=== PATIENT | female | born 1975 | race Caucasian/White ===

== ENCOUNTER 2017-02-13 12:48 | Emergency (ER) | payer OTHER ==
[~2017-02-13] VITALS: Ht 157.5 cm; Wt 70.5 kg
[2017-02-13 12:58] VITALS: Ht 157.5 cm; Wt 70.5 kg
[2017-02-13] MEDS ORDERED: LIDOCAINE 1% (MDV) 20 ML INJ INJ STA (14:44)
[2017-02-13] MEDS ORDERED: IBUPROFEN 800 MG TAB PO STA (14:44)
[2017-02-13] MEDS ORDERED: DIPHTH/TET/ACEL PERTUSS (ADULT) 0.5 ML VIAL IM ONE (15:00)
--- NOTE | 2017-02-13 15:27 | ERD ---
ER Documentation Chief Complaint Date/Time DATE: 02/13/17 Chief Complaint Laceration to left index finger HPI The patient is a 41-year-old female who presents to the Emergency Department with complaint of a laceration to the left index finger. The patient reports that today while at work at a [employer], she accidentally cut the radial aspect of the distal left index finger with a pair of scissors she was using. She immediately washed the wound and placed a pressure dressing, but continues to have some bleeding after the pressure dressing was removed. She denies any numbness, paresthesias or weakness of the distal extremity. Denies restricted range of motion. She rates her current pain as 5/10, though has not yet taken any medication for pain relief. Tetanus status is unknown. ROS All systems reviewed and are negative except as per history of present illness. Allergies Allergies: Coded Allergies: No Known Drug Allergy (Verified Allergy, Unknown, 09/04/07) PMhx/Soc Medical and Surgical Hx: pt denies Medical Hx, pt denies Surgical Hx Hx Alcohol Use: No Hx Substance Use: No Hx Tobacco Use: No Smoking Status: Never smoker Physical Exam Vitals Vital Signs Date Time Temp Pulse Resp B/P Pulse Ox O2 Delivery O2 Flow Rate FiO2 02/13/17 12:58 98.4 71 18 132/62 98 Physical Exam Const: Well-developed, well-nourished, in no acute distress. Head: Atraumatic Eyes: Normal Conjunctiva ENT: Normal External Ears, Nose and Mouth. Neck: Supple. Resp: Clear to auscultation bilaterally Cardio: Regular rate and rhythm, no murmurs Skin: 2-cm curved flap laceration to the radial aspect of the distal left index finger. Minimal bleeding. No crepitus. Ext: No clubbing, cyanosis, or edema. Moving all extremities. Normal flexion and extension at the MCP, PIP and DIP joints. Distal neurovascular status intact. Compartments are soft. Radial and ulnar pulses 2+. Capillary refill < 2 seconds. Neur: Awake and alert. Motor and sensation grossly intact. Psych: Cooperative. Appropriate. Results 24 hrs Current Medications Medications (Trade) Dose Ordered Sig/Mare Route PRN Reason Start Time Stop Time Status Last Admin Dose Admin Diphtheria/ Tetanus/Acell Pertussis (Adacel) 0.5 ml ONCE ONCE IM 02/13/17 15:00 02/13/17 15:02 DC 02/13/17 14:54 Lidocaine (Xylocaine 1% (Mdv) 20 ml) 20 ml ONCE STAT INJ 02/13/17 14:44 02/13/17 14:47 DC 02/13/17 14:51 Ibuprofen (Motrin) 800 mg ONCE STAT PO 02/13/17 14:44 02/13/17 14:47 DC 02/13/17 14:52 Bacitracin (Bacitracin Oint (Ud)) 1 applic ONCE ONCE TOP 02/13/17 15:30 02/13/17 15:31 DC 02/13/17 15:37 Procedures/[facility]M EMERGENCY DEPARTMENT COURSE: The patient was stable throughout the ER course. She was given ibuprofen for pain control. The wound was thoroughly cleansed and a laceration repair was performed. On reassessment the patient was sitting comfortably. Tdap ordered for administration. PROCEDURE NOTE: Laceration repair. INDICATIONS: 2 cm curved flap laceration to the left index finger. CONSENT: Consent was obtained from the patient prior to the procedure. Indications, risks and benefits were explained at length. PROCEDURAL SUMMARY: A time out protocol was performed prior to initiating the procedure. The patient was positioned appropriately. The site was anesthetized with 2 mL of 1% lidocaine without epinephrine. Normal saline and Betadine were used for wound irrigation. The wound was then explored, and no foreign body visualized, no tendon injury. The area was prepared and draped in the usual sterile manner with the wound exposed. Six 5-0 simple interrupted Ethilon sutures are placed with good wound closure and good wound approximation. Bleeding was minimal. The patient tolerated the procedure well without complications. The wound was dressed with bacitracin and sterile gauze. Standard post procedure care was explained and return precautions were given. On re-evaluation, the patient was resting comfortable with no pain localized to the site of injury. He was neurovascularly intact post-procedure. MEDICAL DECISION MAKING: This is a 41-year-old female presenting to the emergency department with a laceration that was sutured. The patient had good wound closure and wound approximation, and tolerated the procedure well. The patient was neurovascularly intact prior to and status post laceration repair. Standard post-procedure care was explained to the patient at length. Tdap administered. At this time the patient in stable condition and therefore can be discharged home with strict return precautions for signs of infection, uncontrollable pain, or any form of worsening or deteriorating condition. The patient is advised to follow-up in 2 days for wound check and then again in 10 days for suture removal, or to return to the ER sooner for any worsening symptoms. I shared my medical decision making and plan with the patient at length and in great detail and the patient verbally understands and agrees with the plan for further observation and care as an outpatient. At the time of discharge all questions were answered. Departure Diagnosis: Primary Impression: Laceration of left index finger Condition: Stable Patient Instructions: Laceration, Hand Additional Instructions: SUTURE REMOVAL:CONSULTE A VARELA MDICO PARA SACAR VARELA PUNTOS.10 llanos. Llame al doctor MAANA y connor rut SOFIE PARA DENTRO DE 1-2 ARANDA.Dgale a la secretaria que nosotros le instruimos hacer esta sofie.Avise o llame si varela condicin se empeora antes de la sofie. Regresa aqui si peor o no mejor. KEEGAN ESCOBAR PA-C Feb 13, 2017 15:27
[2017-02-13] MEDS ORDERED: BACITRACIN 0.9 GM OINT TOP ONE (15:30)
== END 2017-02-13 15:48 | disposition home or self-care (01) ==
LOC: FTE 12:48
DX: S61.211A Laceration without foreign body of left index finger without damage to nail, initial encounter (principal); W27.2XXA Contact with scissors, initial encounter; Y92.513 Shop (commercial) as the place of occurrence of the external cause
CPT/HCPCS: 12001; 90715; 96372; Z7502; Z7610